=== PATIENT | female | born 1975 | race Caucasian/White ===

== ENCOUNTER 2017-10-06 09:42 | Emergency (ER) | payer OTHER ==
[~2017-10-06] VITALS: Ht 160 cm; Wt 65.8 kg
--- NOTE | 2017-10-06 10:03 | ED CARDIAC/CP/PALPITATIONS ---
History of Present Illness General Chief Complaint: General Adult Stated Complaint: CP, RT SHOULDER PAIN Source: patient Exam Limitations: no limitations Vital Signs & Intake/Output Vital Signs & Intake/Output Vital Signs Date Time Temp Pulse Resp B/P B/P Pulse O2 O2 Flow FiO2 Mean Ox Delivery Rate 10/06 1219 97 Room Air 10/06 1202 98.3 53 18 117/73 100 Room Air Room Air 10/06 0957 98.2 59 18 114/78 98 Room Air Allergies Coded Allergies: misoprostol (From [employer]) (Severe, FACIAL NUMBESS 10/06/17) Reconcile Medications Cyclobenzaprine HCl 5 MG TABLET 1 TAB PO TIDPRN PRN cervical strain Escitalopram Oxalate (Lexapro) 20 MG TABLET 1 TAB PO DAILY MENTAL HEALTH ( Reported) Triage Note: 42 YO FEMALE TO TRIAGE FOR EVAL OF R SDIED NECK/SHOULDER/CHEST PAIN SINCE THURSDAY. REPORTS SHE HAS BEEN TRYING ICE/HEAT ON THE NECK WITHOUT RELIEF. REPORTS HX OF ANXIETY. EKG COMPLTED ON ARRIVAL. DENIES SOB. Triage Nurses Notes Reviewed? yes Onset: Gradual Duration: day(s): Timing: recent history LMP (ages 10-50): hysterectomy : No Patient currently breastfeeds: No HPI: 42-year-old female presents emergency department complaining of neck pain radiating toward right back, right arm, right chest for the past 3 days. Patient reports neck stiffness and pain when she moves her neck as well. She also reports paresthesias of right arm. Patient states that symptoms in the right side of her chest made her anxious and prompted her to report here to the emergency department. There was no trauma or inciting event prior to onset of symptoms. Patient denies dyspnea, hemoptysis, or Motrin use, recent travel or surgery, leg swelling. (Irene Robbins) Past History Travel History Traveled to [place] past 21 day No Medical History Any Pertinent Medical History? 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 No (Irene Robbins) Review of Systems Review of Systems Constitutional: Reports: no symptoms. EENTM: Reports: no symptoms. Respiratory: Reports: no symptoms. Cardiovascular: Reports: see HPI. GI: Reports: no symptoms. Genitourinary: Reports: no symptoms. Musculoskeletal: Reports: see HPI. Skin: Reports: no symptoms. Neurological/Psychological: Reports: see HPI. Hematologic/Endocrine: Reports: no symptoms. Immunologic/Allergic: Reports: no symptoms. All Other Systems: Reviewed and Negative (Irene Robbins) Physical Exam Physical Exam General Appearance: well developed/nourished, no apparent distress, alert, awake Head: atraumatic, normal appearance Eyes: Bilateral: normal appearance. Ears, Nose, Throat: hearing grossly normal Neck: normal inspection, supple, full range of motion, right-sided paraspinal muscle tenderness Respiratory: normal breath sounds, no respiratory distress, lungs clear, right- sided chest wall tenderness Cardiovascular: regular rate/rhythm, normal peripheral pulses Peripheral Pulses: 2+ radial (R), 2+ radial (L) Back: right upper back tenderness, no deformity or skin changes Extremities: normal inspection, normal range of motion Neurologic/Psych: no motor/sensory deficits, awake, alert, oriented x 3 Skin: intact, normal color, warm/dry Core Measures ACS in differential dx? Yes CVA/TIA Diagnosis No Sepsis Present: No Sepsis Focused Exam Completed? No All Positive = PERC Ruled Out: Positive: age < 50 years, heart rate < 100 bpm, O2 sat > 94%, no hemoptysis, no hormone use, no prior DVT or PE, no unilateral leg swellin, no surgery/trauma w/ in 4w. (Irene Robbins) Progress Differential Diagnosis: AMI, costochondritis, myocarditis, pericarditis, pneumonia, pulmonary embolism, muscle spasm, cervical radiculopathy, cervical fracture Plan of Care: Orders Procedure Date/time Status TROPONIN LEVEL 10/06 1002 Complete COMPREHENSIVE METABOLIC PANEL 10/06 1002 Complete CBC WITHOUT DIFFERENTIAL 10/06 1002 Complete EKG 10/06 0945 Active Laboratory Tests 10/06/17 1006: Anion Gap 12, Estimated GFR > 60, BUN/Creatinine Ratio 17.1, Glucose 94, Calcium 9.9, Total Bilirubin 0.8, AST 21, ALT 28, Alkaline Phosphatase 43, Troponin I < 0.01, Total Protein 6.8, Albumin 4.4, Globulin 2.4, Albumin/Globulin Ratio 1.8, CBC w Diff NO MAN DIFF REQ, RBC 4.28, MCV 96.5, MCH 33.2 H, MCHC 34.5, RDW 13.4 , MPV 8.6, Gran % 60.1, Lymphocytes % 29.2, Monocytes % 5.0, Eosinophils % 5.4 H, Basophils % 0.3, Absolute Granulocytes 3.3, Absolute Lymphocytes 1.6, Absolute Monocytes 0.3, Absolute Eosinophils 0.3, Absolute Basophils 0 EKG is stable, sinus rhythm. Patient's labs are within normal limits, troponin enzymes negative. This patient is young and otherwise healthy without cardiac risk factors. Her symptoms have been present for days. It was a low suspicion for acute cardiac pathology in this patient. She is perc negative, low suspicion for pulmonary embolism at this time. X-ray show reversal of cervical lordosis consistent with muscle spasm. Cervical muscle spasm likely causing patient's neck pain and paresthesias of the right arm. Patient to begin muscle relaxant and anti-inflammatory medication. She agrees with the plan of care. She is in no acute distress, vital signs are stable, she is ambulatory without difficulty. The patient was seen and evaluated by Dr. Greer who agrees with the plan of care. Diagnostic Imaging: Viewed by Me: Radiology Read. Discussed w/RAD: Radiology Read. Radiology Impression: PATIENT: KYREE CHAPIN PRESENT AGE: 42 PATIENT ACCOUNT NO: [id number] : 77 LOCATION: [facility] ORDERING PHYSICIAN: Irene MATHEWS SERVICE DATE: 10/06/17 EXAM TYPE: RAD - XRY-CHEST XRAY, TWO VIEWS EXAMINATION: XR CHEST CLINICAL INFORMATION : Back and chest pain COMPARISON: None TECHNIQUE: 2 views of the chest were obtained. FINDINGS: No significant abnormality is noted involving the heart, lungs, mediastinum, bony thorax or soft tissues. IMPRESSION: Unremarkable examination. DICTATED BY: Eulalio Mata MD DATE/TIME DICTATED:10/06/171127 REHABILITATION SPECIALIST:FLOYD DATE/TIME TRANSCRIBED:10/06/171127 CONFIDENTIAL, DO NOT COPY WITHOUT APPROPRIATE AUTHORIZATION. <Electronically signed in Other Vendor System> SIGNED BY: Eulalio Mata MD 10/06/17 1131, PATIENT: KYREE CHAPIN PRESENT AGE: 42 PATIENT ACCOUNT NO: [id number] : 77 LOCATION: [facility] ORDERING PHYSICIAN: Irene MATHEWS SERVICE DATE: 10/06/17 EXAM TYPE: RAD - XRY-CERV SPINE 3 VIEWS OR LESS EXAMINATION: XR CERVICAL SPINE CLINICAL INFORMATION: Neck pain radiating to back and arm. COMPARISON: None. TECHNIQUE: 4 views cervical spine. FINDINGS: There is reversal of the normal cervical lordosis. No soft tissue swelling, fractures or subluxations are seen. No bony destructive lesions are seen. The disc spaces are well preserved. IMPRESSION: Reversal of normal cervical lordosis. DICTATED BY: Eulalio Mata MD DATE/TIME DICTATED:10/06/171127 REHABILITATION SPECIALIST:FLOYD DATE/TIME TRANSCRIBED:10/06/171127 CONFIDENTIAL, DO NOT COPY WITHOUT APPROPRIATE AUTHORIZATION. <Electronically signed in Other Vendor System> SIGNED BY: Eulalio Mata MD 10/06/17 1146 Initial ED EKG: SINUS RHYTHM @58BPM, NONSPECIFIC ST CHANGES (Nhi MATHEWS,Irene Leon) Departure Departure Disposition: HOME OR SELF CARE Condition: Stable Clinical Impression Primary Impression: Cervical strain Qualifiers: Encounter type: initial encounter Qualified Code: S16.1XXA - Strain of muscle, fascia and tendon at neck level, initial encounter Secondary Impressions: Chest pain, Paresthesias Additional Instructions: Take Flexeril (cyclobenzaprine) as prescribed for muscle strain. Take Aleve to help with pain and inflammation. Follow-up with her primary care doctor. Return if they have any worsening symptoms or concerns. Please note that there might be incidental findings in your evaluation that are unrelated to the current emergency department visit. Please notify your primary care doctor about this emergency department visit in order to obtain and review all of the testing performed so that these incidental findings can be monitored as needed. If you had an x-ray performed, please understand that some fractures may not be seen on the initial set of x-rays. If your symptoms persist you might need a repeat set of x-rays to check for such a fracture. If you had a laceration evaluated, please understand that foreign bodies such as glass or wood may not be visible to the naked eye or on plain x-rays. If the wound becomes red, swollen, increasingly more painful or if there is any drainage from the wound, please have it reevaluated by a physician for the possibility of a retained foreign body. If you're unable to follow up as outlined in the discharge instructions please return to the emergency department. Thank you for choosing the [facility] Emergency Department for your care. It was a pleasure to serve you today. Departure Forms: Customer Survey General Discharge Information Prescriptions: Current Visit Scripts Cyclobenzaprine HCl 1 TAB PO TIDPRN PRN cervical strain #21 TAB (Nhi MATHEWS,Irene Leon) PA/[employer] Co-Sign Statement Statement: ED Attending supervision documentation- [x] I saw and evaluated the patient. I have also reviewed all the pertinent lab results and diagnostic results. I agree with the findings and the plan of care as documented in the PA's/[employer]'s documentation. [] I have reviewed the ED Record and agree with the PA's/[employer]'s documentation. [] Additions or exceptions (if any) to the PAs/[employer]'s note and plan are summarized below: [] I saw and personally evaluated the patient. No chest pain. Right sided trapezius and neck pain. EKG normal. Pain is been ongoing for days. I agree with the PAs plan care. (Amos Greer DO) Critical Care Note Critical Care Note Critical Care Time: non-applicable (Irene Robbins)
[2017-10-06 10:18] LABS: ABSOLUTE BASOPHIL COUNT 0 /CUMM (0.0-0.2); ABSOLUTE EOSINOPHIL COUNT 0.3 /CUMM (0.0-0.7); ABSOLUTE GRANULOCYTE CT 3.3 /CUMM (1.4-6.5); ABSOLUTE LYMPH COUNT 1.6 /CUMM (1.2-3.4); ABSOLUTE MONOCYTE COUNT 0.3 /CUMM (0.10-0.60); BASOPHIL % 0.3 % (0.0-2.0); EOSINOPHIL % 5.4 % (0-5); GRANULOCYTE % 60.1 % (42.2-75.2); HEMATOCRIT 41.3 % (37-47); MEAN CORPUSCULAR HGB 33.2 PG (27.0-31.0); MEAN CORPUSCULAR HGB CONC 34.5 G/DL (33.0-37.0); MEAN CORPUSCULAR VOLUME 96.5 FL (81.0-99.0); MEAN PLATELET VOLUME 8.6 FL (7.4-10.4); PLATELET COUNT 177 /CUMM (130-400); RBC DISTRIBUTION WIDTH 13.4 % (11.5-14.5); RED BLOOD CELL CT 4.28 /CUMM (4.20-5.40); WHITE BLOOD CELL COUNT 5.6 /CUMM (4.8-10.8)
--- NOTE | 2017-10-06 11:31 | RADIOLOGY REPORT ---
EXAMINATION: XR CHEST CLINICAL INFORMATION: Back and chest pain COMPARISON: None TECHNIQUE: 2 views of the chest were obtained. FINDINGS: No significant abnormality is noted involving the heart, lungs, mediastinum, bony thorax or soft tissues. IMPRESSION: Unremarkable examination.
--- NOTE | 2017-10-06 11:49 | RADIOLOGY REPORT ---
EXAMINATION: XR CERVICAL SPINE CLINICAL INFORMATION: Neck pain radiating to back and arm. COMPARISON: None. TECHNIQUE: 4 views cervical spine. FINDINGS: There is reversal of the normal cervical lordosis. No soft tissue swelling, fractures or subluxations are seen. No bony destructive lesions are seen. The disc spaces are well preserved. IMPRESSION: Reversal of normal cervical lordosis.
[2017-10-06] MEDS ORDERED: LEXAPRO20 M1 PO (11:50)
[2017-10-06] MEDS ORDERED: CYCLOBENZAPRINE5 M2 PO (11:56)
[2017-10-06 12:02] VITALS: BP 117/73
== END 2017-10-06 12:24 ==
LOC: ERH 09:42
PROVIDERS: Physician Assistant
DX: S16.1XXA Strain of muscle, fascia and tendon at neck level, initial encounter (principal); X58.XXXA Exposure to other specified factors, initial encounter; Y92.9 Unspecified place or not applicable; Y93.9 Activity, unspecified
CPT/HCPCS: 71046; 72040; 93005; 93010